=== PATIENT | female | born 1990 | race Caucasian/White ===

== ENCOUNTER 2025-09-23 07:30 | Inpatient (IN) ==
--- NOTE | 2025-09-22 15:27 | Anesthesiology Consultation ---
Date of Service September 22, 2025 Assessment & Plan (1) Encounter for pre-operative examination: - Per meteorological equipment repairer on 09/22/25: No known infectious disease contacts, current infectious disease symptoms in past 10 days or COVID positive test result in the past 30 days. Chart Review Chart Review: entry level initiated History Surgery Operation Date: 09/24/25 08:50 Proposed Procedures p Repeat Section - Corinna Guardado MD Height/Weight Height: 5 ft 7 in Weight: 63.957 kg Allergies Allergy/AdvReac Type Severity Reaction Status Date / Time Sulfa (Sulfonamide Allergy Mild Rash Verified 06/23/23 07:30 Antibiotics) Medications Home Medications Medication Instructions Recorded Confirmed Last Taken ferrous sulfate 325 mg (65 mg 325 mg PO QPM 09/22/25 09/22/25 Unknown iron) tablet,delayed release vitamins no.144-folic 1 tab PO QPM 09/22/25 09/22/25 Unknown acid 400 mcg chewable tablet () valacyclovir 1 gram tablet 1,000 mg PO BID 09/22/25 09/22/25 Unknown Past Medical History Medical History (Updated 09/22/25 @ 15:26 by Eboni Light PA-C) Herpes 09/22/25, rash covering vulva/labia/buttocks areas, tested at [facility] for herpes zoster vs. herpes simplex-put on valacyclovir>awaiting results at time of interview. Past Family History Family History Grandmother (Maternal) Diabetes Hypertension Grandmother (Paternal) Heart disease Hypertension Grandmother (Maternal) Heart disease Hypertension Mother Hypertension Father Hypertension Past Surgical History Surgical History H/O wisdom tooth extraction Hx of section Social History Smoking Status: Never smoker Do You Dip or Chew Tobacco: No Hx Alcohol Use: Yes (not while ; socially only) Hx Substance Use: No substance use type: does not use
[2025-09-24] MEDS: LACTATED RINGER'S 1,000 ML IV SCH ×2 (07:36→08:38)
[2025-09-24 07:41] LABS: Hematocrit (blood only) 33.8 % (37.0-47.0); Hemoglobin 11.9 g/dL (12.0-16.0); Mean Corpuscular Hemoglobin 31.7 pg (25.0-34.0); Mean Corpuscular Volume 90.1 fL (80.0-100.0); Platelet Count 140 K/uL (130-400); RDW Standard Deviation 42.2 fL (36.4-46.3); Red Blood Count 3.75 M/uL (4.20-5.40); White Blood Count 6.59 K/ul (4.8-10.8)
--- NOTE | 2025-09-24 08:46 | History & Physical Report ---
Date of Service September 24, 2025 Assessment & Plan (1) Hx of section: Plan: 35-year-old -0-0-1 at 39 weeks of gestation with history of prior C- section and recent diagnosis of genital rash which was confirmed to be varicella-zoster virus infection, here for scheduled repeat , Vital signs stable afebrile, heart rate reassuring, No signs or symptoms of active labor, Plan to admit, monitor, labs, proceed with repeat low-transverse , Patient understands C section is a major surgery, with risks including but not limited to bleeding , infection, injury to surrounding organs like bowels, bladder, ureters, adhesions, scarring, wound infection, blood cloths in legs/ lungs, longer recovery. All questions were answered. She signed an informed consent. (2) Varicella affecting in third trimester: (3) Rash of genital area: (4) Encounter for pre-operative examination: Admission and Anticipated Discharge Date Admission Date: September 24, 2025 History of Present Illness Primary Care Provider: Roxanne Salazar MD Patient is a 35-year-old -0-0-1 at 39 weeks of gestation who was scheduled for repeat for history of prior and recent diagnosis of genital rash which was thought to be herpes virus infection. She was seen and [place] office on September 22 when she noted the rash in the medial right upper thigh and right side of the labia. her swab viral culture results are back and positive for varicella zoster virus and negative for HSV 1 and 2. Blood work is pending. She was planning to do a but because of this recommended to have repeat . Patient has been on Valtrex since then and rash is getting better and pain is getting less. She denies contractions, leakage of fluid, vaginal bleeding. She reports good movements. Her has been otherwise uncomplicated. She had prior due to distress and second stage of labor and recovered well. She denies any medical problems, she denies any history of genital herpes. Had chickenpox as a child and has not had varicella vaccine. Allergies Allergy/AdvReac Type Severity Reaction Status Date / Time Sulfa (Sulfonamide Allergy Mild Rash Verified 06/23/23 07:30 Antibiotics) Home Medications Medication Instructions Recorded Confirmed Type ferrous sulfate 325 mg (65 mg 325 mg PO QPM 09/22/25 09/24/25 History iron) tablet,delayed release vitamins no.144-folic 1 tab PO QPM 09/22/25 09/24/25 History acid 400 mcg chewable tablet () valacyclovir 1 gram tablet 1,000 mg PO BID 09/22/25 09/24/25 History Patient History Medical History Herpes 09/22/25, rash covering vulva/labia/buttocks areas, tested at [facility] for herpes zoster vs. herpes simplex-put on valacyclovir>awaiting results at time of interview. Surgical History Hx of section H/O wisdom tooth extraction Family History Grandmother (Maternal) Diabetes Hypertension Grandmother (Paternal) Heart disease Hypertension Grandmother (Maternal) Heart disease Hypertension Mother Hypertension Father Hypertension Social History Smoking Status: Never smoker Second Hand Exposure: No; Do You Dip or Chew Tobacco: No; Tobacco Cessation Education Requested by Patient: No Hx Alcohol Use: Yes (not while ; socially only) Hx Substance Use: No Preferred Language: Syriac Communication Ability: Effective Visual Impairment: No Limitations Hearing Ability: Normal Winding Inspector Required: No Beliefs That Will Affect Care: None marital status: marital status details: Hosea Chance Current Living Situation: Spouse and Family current occupational status: employed current occupation: [employer] Other Information That Helps Us Care for You: No Feels Safe at Home: Yes Safety Concerns: Feels Safe At This Time Assistive Devices: Contacts and Glasses Review of Systems as per Subjective / HPI Physical Exam Constitutional: WD/WN, vitals as above well developed, well nourished and comfortable Gastrointestinal (Abdomen): normal bowel sounds, soft, nontender, no hepatosplenomegaly Genitourinary: Overall round rash on upper medial thigh close to going on 1 side, and on pulm sounds, soon dark red crust on the right labia majora, left labia and medial thigh are intact free of lesions. Results & Data Vital Signs (Past 12 Hours) Vital Signs Pulse BP 09/24/25 07:17 77 120/78 Laboratory Results Lab Results 09/24/25 Range/Units 07:25 WBC 6.59 (4.8-10.8) K/ul RBC 3.75 L (4.20-5.40) M/uL Hgb 11.9 L (12.0-16.0) g/dL Hct 33.8 L (37.0-47.0) % MCV 90.1 (80.0-100.0) fL MCH 31.7 (25.0-34.0) pg MCHC 35.2 (32.0-36.0) g/dL RDW Std Deviation 42.2 (36.4-46.3) fL RDW Coeff of Hanane 12.7 (11.5-14.5) % Plt Count 140 (130-400) K/uL MPV 11.1 (9.4-12.4) fL Blood Type O Negative Antibody Screen NEGATIVE
[2025-09-24] MEDS: CITRIC ACID/SODIUM CITRATE 15 ML UDC PO SCH (10:45)
[2025-09-24] MEDS: ACETAMINOPHEN 500 MG TAB PO SCH (10:45)
[2025-09-24] MEDS ORDERED: MoRPHine SULFATE PF 1 MG/ML 10 ML AMP/VIAL ONE (11:08)
[2025-09-24] MEDS ORDERED: OXYTOCIN 10 UNITS/ML VIAL ONE ×3 (11:16)
[2025-09-24] MEDS ORDERED: ONDANSETRON INJ 2 MG/ML 2 ML VIAL IV PRN (12:01)
[2025-09-24] MEDS ORDERED: MoRPHine SULFATE PF 1 MG/ML 10 ML AMP/VIAL INT SPINAL ONE (12:01)
[2025-09-24] MEDS ORDERED: diphenhydrAMINE 50 MG/ML VIAL IV PRN (12:01)
[2025-09-24] MEDS ORDERED: NALBUPHINE HCL INJ 10 MG/ML AMP IV PRN (12:01)
[2025-09-24] MEDS ORDERED: LACTATED RINGER'S 500 ML IV PRN (12:01)
[2025-09-24] MEDS ORDERED: NALOXONE HCL 0.4 MG/1 ML VIAL/CARP IV PRN (12:01)
[2025-09-24] MEDS ORDERED: NALOXONE HCL 0.08 MG in SYRINGE 1.8 ML IV PRN (12:01)
[2025-09-24] MEDS ORDERED: NALOXONE HCL 1 MG in SODIUM CHLORIDE 0.9% 1,000 ML IV PRN (12:01)
[2025-09-24] MEDS ORDERED: NO NARCOTICS OR SEDATIVES SCH (12:15)
[2025-09-24] MEDS ORDERED: DC INTRASPINAL MORPHINE SCH (12:15)
[2025-09-24] MEDS ORDERED: SODIUM CHLORIDE 0.9% 1,000 ML IV SCH (12:15)
[2025-09-24] MEDS ORDERED: CALCIUM CARBONATE 500 MG CHEWABLE TAB PO PRN (13:06)
[2025-09-24] MEDS ORDERED: DIPHTHER/TETAN/PERTUS Vaccine (Tdap, Adol/Adult) 0.5mL IM ONE (13:06)
[2025-09-24] MEDS ORDERED: HYDROCORTISONE ACETATE 25 MG SUPP PR PRN (13:06)
[2025-09-24] MEDS ORDERED: MEASLES, MUMPS & RUBELLA VIRUS VACCINE (MMR) 0.5ML VIAL SQ ONE (13:06)
[2025-09-24] MEDS ORDERED: BENZOCAINE 20% SPRY 85 APPLN/85 GM CAN EXT PRN (13:06)
[2025-09-24] MEDS ORDERED: MAGNESIUM HYDROXIDE SUSP 30 ML UDC PO PRN (13:06)
[2025-09-24] MEDS ORDERED: SENNA 8.6 MG TAB PO PRN (13:06)
[2025-09-24] MEDS ORDERED: LACTATED RINGER'S 1,000 ML IV SCH (13:15)
[2025-09-24] MEDS: KETOROLAC 30 MG/ML VIAL IV SCH (13:26)
--- NOTE | 2025-09-24 13:26 | Operative Report ---
Post Operative Report Pre & Post Diagnosis Operation Date: 09/24/25 08:50 Pre-Op Diagnosis: Prior section Varicella infection in labia. Post-Op Diagnosis: Prior section Varicella infection in labia. Delivery of live female child at 1224. I identified the patient and participated in the time-out.: Yes Procedure Operation Date: 09/24/25 08:50 Actual Procedures p Repeat Section, delivery of live female child at 1224 - Corinna Montilla MD Surgeon Corinna Guardado MD Supervisor Graphite Annette Caldera RN Quantitative Blood Loss (QBL) 372 Findings Consistent with Post-Op Diagnosis Baby was a iable Female delivered at 12:24 PM, in cephalic presentation, Apgars 9/9, weight was 3280 g. Maternal findings: normal uterus, fallopian tubes and ovaries Specimens placenta, cord Drains Helms catheter drained 100 mL of clear urine Anesthesia Type Spinal Complications none Indications patient is a 35-year-old -0-0-1 at 39 weeks of gestation who was scheduled for repeat for history of prior and recent diagnosis of genital rash which was consistent with varicella-zoster virus. Description of Procedure Patient was taken to operating room where a spinal anesthesia was given without difficulty. She was placed in dorsal supine position with a leftward tilt. She was prepared and draped in usual sterile fashion. A financial skin incision was made and carried through to the underlying layer of fascia with the Bovie. Fascia was incised in the midline and incision was extended laterally with the help of Gates scissors. Then the upper aspect of the fascial incision was grasped with 2 Elisabeth clamps elevated the underlying rectus muscles were dissected off sharply with Gates scissors. Same thing was done on the lower incision. Then the muscles were in the midline, peritoneum was identified grasped with 2 pickups and entered sharply with Metzenbaum scissors. Peritoneal incision was extended superior and inferiorly with good visualization of the bladder. The bladder blade was inserted. Vesicouterine peritoneum was identified, grasped with pickups and entered sharply with Metzenbaum scissors, bladder flap was created digitally and bladder blade was reinserted. Uterus was incised in transverse fashion, incision was extended laterally, membranes were ruptured and clear fluid was obtained. Baby's head was delivered without difficulty, followed by shoulders and body with minimal traction without faculty. Mouth and nose were suctioned there was dried on the field he was vigorously crying and moving. The cord was clamped times and cut at 1 minute delay and then the infant was handed off to the pediatric team. Then the placenta was delivered manually as intact and complete. Uterus was kept in the pelvis and cleared of all clots and debris. Uterine incision was repaired with 0 Vicryl in a running locked fashion, second umbricating layer was placed with the same suture in running locked fashion. Excellent hemostasis achieved. The pelvis was irrigated with warm normal saline and suctioned. Incision was checked of anesthetic again. The parietal peritoneum was reapproximated with 2-0 Vicryl in a running fashion and the muscles were reapproximated in the same suture in a running fashion. All of the fascia and rectus muscles were hemostatic. Rectus fascia was reapproximated with 0 Vicryl in a running fashion, skin was closed with 4-0 Monocryl in a subcuticular cuticular fashion. The mom and baby tolerated procedure well. Sponge needle instrument count was correct x3. she was given 2 g of cefazolin before surgery. No complications happened, I was present during whole procedure. My news assistant was needed for retraction, hemostasis and aid during delivery of infant. I attest to the content of the Intraoperative Record and any orders documented therein. Any exceptions are noted below.
[2025-09-24] MEDS: OXYTOCIN 20 UNITS/LR 1,002 ML IV SCH (13:58)
--- NOTE | 2025-09-24 15:12 | Anesthesiology Progress Note ---
Date of Service September 24, 2025 Anesthesia Post Procedure Vital Signs Vital Signs: Temp Pulse Resp BP Pulse Ox O2 Del Method 09/24/25 15:09 80 98 09/24/25 15:04 90 98 09/24/25 14:59 85 99 09/24/25 14:54 78 98 09/24/25 14:49 77 98 09/24/25 14:46 82 121/71 09/24/25 14:45 16 Room Air 09/24/25 14:44 81 99 09/24/25 14:39 78 99 09/24/25 14:34 69 99 09/24/25 14:29 80 99 09/24/25 14:24 74 99 09/24/25 14:19 93 H 100 09/24/25 14:15 16 09/24/25 14:15 77 120/80 09/24/25 14:14 86 100 09/24/25 14:09 84 100 09/24/25 14:07 68 122/78 09/24/25 14:05 17 09/24/25 14:04 80 99 09/24/25 13:59 95 H 99 09/24/25 13:55 14 09/24/25 13:55 114/86 09/24/25 13:54 79 100 09/24/25 13:49 82 100 09/24/25 13:45 15 09/24/25 13:45 85 106/78 09/24/25 13:44 82 100 09/24/25 13:39 75 100 09/24/25 13:35 16 09/24/25 13:35 65 96/56 L 09/24/25 13:34 66 100 09/24/25 13:29 61 98 09/24/25 13:25 16 09/24/25 13:25 75 101/62 09/24/25 13:24 72 99 09/24/25 13:19 69 99 09/24/25 13:15 36.8 C 17 Room Air 09/24/25 13:15 71 105/68 09/24/25 13:14 70 100 09/24/25 09:14 36.4 C L 16 09/24/25 08:06 36.6 C 09/24/25 07:17 77 120/78 Pain Intensity Bilateral Lower Abdomen: Pain Intensity: 3 Notes Mental Status: alert / awake / arousable Patient Amnestic to Procedure: Yes Nausea / Vomiting: adequately controlled Pain: adequately controlled Airway Patency, RR, SpO2: stable & adequate BP & HR: stable & adequate Hydration State: stable & adequate Neuraxial Anesthesia: was administered and sensory block is resolving Anesthetic Complications: no major complications apparent
[2025-09-24] MEDS: ACETAMINOPHEN 325 MG TAB PO SCH (19:34)
[2025-09-24] MEDS: SIMETHICONE 80 MG CHEW PO SCH (19:34)
[2025-09-24] MEDS: DOCUSATE SODIUM 100 MG CAP PO SCH (22:55)
[2025-09-25] MEDS ORDERED: PROMETHAZINE 12.5 MG/50.5 ML BAG IV PRN (06:02)
[2025-09-25] MEDS ORDERED: diphenhydrAMINE 50 MG/ML VIAL IV PRN (06:02)
[2025-09-25] MEDS ORDERED: HYDROmorphone INJ 0.5 MG/0.5 ML SYR IV PRN (06:02)
[2025-09-25] MEDS ORDERED: ONDANSETRON INJ 2 MG/ML 2 ML VIAL IV PRN (06:02)
[2025-09-25] MEDS ORDERED: diphenhydrAMINE Capsule 25 MG CAP PO PRN (06:02)
[2025-09-25 06:34] LABS: Hematocrit (blood only) 31.2 % (37.0-47.0); Hemoglobin 10.6 g/dL (12.0-16.0); Immature Granulocytes # (auto) 0.04 K/uL (0.01-0.20); Immature Granulocytes % (auto) 0.4 %; Mean Corpuscular Hemoglobin 31.7 pg (25.0-34.0); Mean Corpuscular Volume 93.4 fL (80.0-100.0); Platelet Count 113 K/uL (130-400); RDW Standard Deviation 44.0 fL (36.4-46.3); Red Blood Count 3.34 M/uL (4.20-5.40); White Blood Count 9.94 K/ul (4.8-10.8)
[2025-09-25] MEDS: PRENATAL VITAMIN 1 TAB PO SCH (07:49)
[2025-09-25] MEDS: FERROUS SULFATE 325 MG TAB PO SCH (07:50)
--- NOTE | 2025-09-25 11:23 | Obstetrical Progress Note ---
Date of Service September 25, 2025 Assessment & Plan Admission and Anticipated Discharge Date Admission Date: September 24, 2025 Subjective Patient is seen and examined. She feels well, no complaints. Pain is under control Ambulating without dizziness Voiding without difficulty Tolerating regular diet with out N&V Flatus + BM neg Bleeding is minimal No fever/ chills/ CP/ SOB/ N&V/ Leg pain Breast feeding without problems Vital Signs Temp Pulse Resp BP Pulse Ox O2 Del Method 09/25/25 08:00 36.6 C 80 17 122/82 100 Room Air 09/25/25 06:00 18 98 09/25/25 05:00 18 97 09/25/25 04:00 18 98 09/25/25 03:16 36.7 C 60 18 114/75 99 Room Air 09/25/25 03:00 18 99 09/25/25 02:00 18 98 09/25/25 01:05 18 96 09/25/25 00:00 18 98 09/25/25 00:00 36.6 C 72 18 108/71 98 Room Air Lab Results 09/24/25 09/25/25 Range/Units 07:25 05:50 WBC 6.59 9.94 (4.8-10.8) K/ul RBC 3.75 L 3.34 L (4.20-5.40) M/uL Hgb 11.9 L 10.6 L (12.0-16.0) g/dL Hct 33.8 L 31.2 L (37.0-47.0) % MCV 90.1 93.4 (80.0-100.0) fL MCH 31.7 31.7 (25.0-34.0) pg MCHC 35.2 34.0 (32.0-36.0) g/dL RDW Std Deviation 42.2 44.0 (36.4-46.3) fL RDW Coeff of Hanane 12.7 13.0 (11.5-14.5) % Plt Count 140 113 L (130-400) K/uL MPV 11.1 11.1 (9.4-12.4) fL Immature Gran % (Auto) 0.4 % Neut % (Auto) 74.1 % Lymph % (Auto) 18.2 % Centre % (Auto) 6.3 % Eos % (Auto) 0.8 % Baso % (Auto) 0.2 % Neut # (Auto) 7.36 H (1.40-6.50) K/uL Lymph # (Auto) 1.81 (1.20-3.40) K/uL Centre # (Auto) 0.63 H (0.11-0.59) K/uL Eos # (Auto) 0.08 (0.00-0.50) K/uL Baso # (Auto) 0.02 (0.00-0.20) K/uL Immature Gran # (Auto) 0.04 (0.01-0.20) K/uL Treponema pallidum Ab Negative (Negative) Blood Type O Negative Antibody Screen NEGATIVE PE: General: Alert, orientedx3, NAD CVS: S1S2 RRR Lungs; CTAB Abd: soft, NT, ND, BS+, fundus firm, below Umbilicus Incision: Clean, dry, intact Perineum intact, Lochia rubra minimal Ext; NT, no edema AP: 35 yo s/p RC Section, pod# 1 VSS Afebrile doing well Continue routine postop care Encourage ambulation, PO intake All questions were answered D/C home tomorrow Results & Data Vital Signs (Past 12 Hours) Vital Signs Temp Pulse Resp BP Pulse Ox O2 Del Method 09/25/25 08:00 36.6 C 80 17 122/82 100 Room Air 09/25/25 06:00 18 98 09/25/25 05:00 18 97 09/25/25 04:00 18 98 09/25/25 03:16 36.7 C 60 18 114/75 99 Room Air 09/25/25 03:00 18 99 09/25/25 02:00 18 98 09/25/25 01:05 18 96 09/25/25 00:00 18 98 09/25/25 00:00 36.6 C 72 18 108/71 98 Room Air
[2025-09-25] MEDS ORDERED: KETOROLAC 30 MG/ML VIAL IV PRN (13:06)
[2025-09-25] MEDS: IBUPROFEN 600 MG TAB PO SCH (13:31)
[2025-09-26 06:26] LABS: Hematocrit (blood only) 29.9 % (37.0-47.0); Hemoglobin 10.0 g/dL (12.0-16.0)
[2025-09-26 07:30] VITALS: BP 125/84; PULSE 76; RESP 16; TEMP 98.4; O2SAT 99
[2025-09-26] MEDS: IBUPROFEN 600 MG TAB PO PRN (12:53)
--- NOTE | 2025-09-26 14:13 | Obstetrical Progress Note ---
Date of Service September 26, 2025 Subjective Ambulation: ambulating normally Voiding: no voiding problems Passing Gas:: Yes Diet Tolerance:: regular diet Lochia:: Small Feeding Type:: breast feeding Current Pain Level(1-10): 0 doing well. lesions crusting. baby is being transferred to [place] Physical Exam Constitutional WD/WN, vitals as above Gastrointestinal (Abdomen) Inspection/Auscultation: abdomen normal to inspection incision c/d/i Musculoskeletal Extremities: extremities normal to inspection Skin no rashes, warm and dry Neurologic patellar DTR's 2+ bilat, sensation intact Psychiatric A+Ox3, euthymic affect Results & Data Vital Signs (Past 12 Hours) Vital Signs Temp Pulse Resp BP Pulse Ox O2 Del Method 09/26/25 07:00 36.9 C 76 16 125/84 99 Room Air Laboratory Results Laboratory Results - last 72 hr 09/24/25 09/25/25 09/26/25 07:25 05:50 06:03 WBC 6.59 9.94 RBC 3.75 L 3.34 L Hgb 11.9 L 10.6 L 10.0 L Hct 33.8 L 31.2 L 29.9 L MCV 90.1 93.4 MCH 31.7 31.7 MCHC 35.2 34.0 RDW Std Deviation 42.2 44.0 RDW Coeff of Hanane 12.7 13.0 Plt Count 140 113 L MPV 11.1 11.1 Immature Gran % (Auto) 0.4 Neut % (Auto) 74.1 Lymph % (Auto) 18.2 Dauphin % (Auto) 6.3 Eos % (Auto) 0.8 Baso % (Auto) 0.2 Neut # (Auto) 7.36 H Lymph # (Auto) 1.81 Dauphin # (Auto) 0.63 H Eos # (Auto) 0.08 Baso # (Auto) 0.02 Immature Gran # (Auto) 0.04 Treponema pallidum Ab Negative Blood Type O Negative Antibody Screen NEGATIVE
[2025-09-26] MEDS ORDERED: ACETAMINOPHEN 325 MG TAB PO PRN (19:06)
== END 2025-09-26 16:25 | disposition home or self-care (01) | DRG 788 ==
LOC: 4S1 09-24 06:52 → EDSTATUS 09-24 08:50 → 4E1 09-24 16:24